=== PATIENT | female | born 1975 | race Hispanic/Latino ===

== ENCOUNTER 2017-07-03 21:08 | Emergency (ER) | payer BC ==
[2017-07-03] MEDS ORDERED: Meclizine HCl 25 MG TAB ONE (21:31)
[2017-07-03 21:53] LABS: #Eosinphils 0.1 thou/uL (0.0-0.7); #Lymphocytes 2.1 thou/uL (1.20-3.40); #Monocytes 0.3 thou/uL (0.11-0.59); #Neutrophils 1.7 thou/uL (1.40-6.50); %Basophils 0.9 % (0.0-1.0); %Eosinophils 3.3 % (0.0-10.0); %Lymphocytes 49.5 % (21.0-51.0); %Monocytes 6.4 % (0.0-10.0); Hematocrit 36.9 % (36.0-47.0); Mean Platelet Volume 7.5 fL (7.4-10.4); Red Blood Cell (RBC) Count 4.14 mill/uL (4.20-5.40); White Blood Cell (WBC) Count 4.2 thou/uL (4.8-10.8)
[2017-07-03] MEDS ORDERED: Ketorolac Tromethamine 30 MG/ML VIAL ONE (22:03)
[2017-07-03 22:12] LABS: ALT (SGPT) 11 U/L (8-55); AST (SGOT) 16 U/L (5-34); Alkaline Phosphatase 83 U/L (40-150); Anion Gap 11 mmol/L (10-20); BUN (Urea Nitrogen) 10 mg/dL (7.0-18.7); Bilirubin, Total 0.4 mg/dL (0.2-1.2); CK (CPK) 59 U/L (29-168); Calc. Creatinine Clearance 0 mL/min (70-130); Calcium 8.9 mg/dL (7.8-10.44); Carbon Dioxide 26 mmol/L (22-29); Chloride 106 mmol/L (98-107); Estimated GFR-MDRD Greater than 90; Globulin 2.7 g/dL (2.4-3.5); Protein, Total 6.9 g/dL (6.0-8.3)
[2017-07-03 22:17] LABS: Troponin I Less than 0.010 ng/mL (< 0.028)
[2017-07-03] MEDS ORDERED: Metoclopramide HCl 10 MG/2 ML VIAL ONE (23:28)
[2017-07-03 23:42] LABS: Bilirubin Negative (Negative); Blood, Urine Negative (Negative); Glucose, Urine (Dipstick) Negative (Negative); Ketone, Urine Negative (Negative); Nitrite Negative (Negative); Protein, Urine (Dipstick) Negative (Neg-Trace); Urobilinogen 0.2 mg/dL (0.2-1.0)
--- NOTE | 2017-07-04 07:04 | CT ---
CT BRAIN HISTORY: Vertigo, dizziness. Noncontrast-enhanced CT images of the brain obtained from the base of the skull to the vertex. Brai n and bone windows obtained. FINDINGS: Noncontrast-enhanced CT images of the brain are unremarkable. No evidence of intracranial masses, h emorrhages, strokes, or contusions seen. IMPRESSION: Normal CT brain. POS: [facility]
== END 2017-07-04 00:50 | disposition home or self-care (01) ==
LOC: ERS 21:08
DX: R42 Dizziness and giddiness (principal)
CPT/HCPCS: 36416; 70450; 80053; 81003; 81025; 82553; 84484; 85025; 93005; 96361; 96365; 96375; J1885; J2765

== ENCOUNTER 2018-10-07 17:36 | Emergency (ER) | payer BC ==
[~2018-10-07 17:36] MED LIST: ISOVUE-370 76%-LOCM 1 ML ONE
[2018-10-07 18:21] LABS: #Eosinphils 0.1 thou/uL (0.0-0.7); #Lymphocytes 1.6 thou/uL (1.20-3.40); #Monocytes 0.3 thou/uL (0.11-0.59); #Neutrophils 2.1 thou/uL (1.40-6.50); %Eosinophils 1.7 % (0.0-10.0); %Lymphocytes 38.8 % (21.0-51.0); %Monocytes 6.2 % (0.0-10.0); %Neutrophils 52.4 % (42.0-75.0); Hemoglobin 10.7 g/dL (12.0-16.0); Mean Corpuscular Hemoglobin 25.9 pg (27.0-31.0); Mean Platelet Volume 7.8 fL (7.4-10.4); Platelet Count 228 thou/uL (130-400); RBC Distribution Width 15.5 % (11.5-14.5); Red Blood Cell (RBC) Count 4.11 mill/uL (4.20-5.40)
[2018-10-07 18:46] LABS: ALT (SGPT) 8 U/L (8-55); AST (SGOT) 15 U/L (5-34); Albumin 4.6 g/dL (3.5-5.0); Alkaline Phosphatase 78 U/L (40-150); Anion Gap 11 mmol/L (10-20); BUN (Urea Nitrogen) 10 mg/dL (7.0-18.7); Bilirubin, Total 0.5 mg/dL (0.2-1.2); CK (CPK) 48 U/L (29-168); Calc. Creatinine Clearance 0 mL/min (70-130); Calcium 9.5 mg/dL (7.8-10.44); Carbon Dioxide 23 mmol/L (22-29); Chloride 106 mmol/L (98-107); Estimated GFR-MDRD Greater than 90; Globulin 2.6 g/dL (2.4-3.5); Glucose 86 mg/dL (70-105); Lipase 28 U/L (8-78); Potassium 3.4 mmol/L (3.5-5.1); Protein, Total 7.2 g/dL (6.0-8.3); Sodium 137 mmol/L (136-145)
--- NOTE | 2018-10-07 20:12 | RAD ---
FRONTAL VIEW CHEST: INDICATIONS: Chest pain with dizziness. FINDINGS: The lungs are clear. No effusion or pneumothorax. The cardiac silhouette and osseous structures are unremarkable. Metallic clips are seen at the right upper abdomen. IMPRESSION: No focal consolidation. POS: [facility]
[2018-10-07] MEDS ORDERED: Lorazepam 2 MG/ML VIAL ONE (20:20)
--- NOTE | 2018-10-07 21:07 | CT ---
CTA NECK WITH 3D VOLUME RENDERING WITH CONTRAST: INDICATIONS: History of left lower extremity paresthesias. Chest pain. Left facial paresthesias. The patient re ports recent neck manipulation. FINDINGS: The imaged aortic arch is patent. The origins of the great vessels are obscured by prominent streak artifact from adjacent venous contrast bolus, which does limit reliable visualization of this region. Otherwise, the major arterial system of the neck, including the bilateral common carotid and accounting intern al carotid arteries, as well as the imaged vertebral arteries, is patent, without evidence of a flow- limiting dissection, high-grade stenosis, or occlusion. IMPRESSION: No significant arterial pathology of the neck identified, within limitations. POS: [facility]
== END 2018-10-07 21:44 | disposition home or self-care (01) ==
LOC: ERS 17:36
DX: R07.9 Chest pain, unspecified (principal); R20.0 Anesthesia of skin; R42 Dizziness and giddiness
CPT/HCPCS: 36415; 70498; 71045; 80053; 82550; 83690; 84484; 85025; 93005; 96374; J2060; Q9966

== ENCOUNTER 2018-10-12 00:38 | Emergency (ER) | payer BC | END 2018-10-12 03:30 | disposition home or self-care (01) | LOC: ERS 00:38 | DX: F41.9 Anxiety disorder, unspecified (principal); R07.89 Other chest pain; Z79.899 Other long term (current) drug therapy | CPT/HCPCS: 93005 ==

== ENCOUNTER 2018-11-22 09:35 | Outpatient (CLI) | payer BC ==
--- NOTE | 2018-12-02 13:18 | MMO ---
Bilateral MAMMO Bilat Screen [facility]. CLINICAL HISTORY: Patient is 43 years old and is seen for screening. The patient has no family history of breast cancer. The patient has no personal history of cancer. The patient has a history of right Cyst Aspiration in 2018 and right Cyst Aspiration in 2017. VIEWS: The views performed were: bilateral craniocaudal with tomosynthesis and bilateral mediolateral oblique with tomosynthesis. FILMS COMPARED: The present examination has been compared to a prior imaging study performed at [facility] on 02/04/2016. MAMMOGRAM FINDINGS: The breasts are extremely dense, which may lower the sensitivity of mammography. Benign calcifications are noted bilaterally. There are no suspicious masses, calcifications or areas of architectural distortion. IMPRESSION: FINDINGS IN BOTH BREASTS ARE BENIGN. A ROUTINE FOLLOW-UP MAMMOGRAM IN 1 YEAR IS RECOMMENDED. THE RESULTS OF THIS EXAM WERE SENT TO THE PATIENT. ACR BI-RADS Category 2 - Benign finding MAMMOGRAPHY NOTE: 1. A negative mammogram report should not delay a biopsy if a dominant of clinically suspicious mass is present. 2. Approximately 10% to 15% of breast cancers are not detected by mammography. 3. Adenosis and dense breasts may obscure an underlying neoplasm.
== END 2018-11-22 09:36 | disposition home or self-care (01) ==
LOC: BICMAMMO 09:35
PROVIDERS: ATTEND Family Medicine
DX: Z12.31 Encounter for screening mammogram for malignant neoplasm of breast (principal); Z98.890 Other specified postprocedural states
CPT/HCPCS: 77063; 77067

== ENCOUNTER 2019-01-10 15:15 | Outpatient (CLI) | payer BC ==
--- NOTE | 2019-01-10 16:53 | MRI ---
Pre and postcontrast enhanced MRI images brain and cranial nerves 01/10/2019. HISTORY: Left-sided facial tingling. MRI images brain demonstrate the brain to be unremarkable. No evidence of intracranial masses, hemorr hages, strokes or contusion seen. Ventricles are of normal size. No evidence of areas of diffusion restriction seen. No abnormal areas of intracranial enhancement seen to suggest obvious intracranial mass lesions or ab normalities. The course of the cranial nerves demonstrate no abnormal masses or lesions. The left trigeminal nerve and facial nerves are unremarkable. IMPRESSION: Unremarkable pre and postcontrast enhanced MRI images of brain. Transcribed Date/Time: 01/10/2019 6:30 PM
== END 2019-01-10 15:16 | disposition home or self-care (01) ==
LOC: BICMRI 15:15
PROVIDERS: ATTEND Psychiatry & Neurology Neurology
DX: R20.2 Paresthesia of skin (principal)
CPT/HCPCS: 70553

== ENCOUNTER 2019-05-14 18:55 | Emergency (ER) | payer BC ==
[2019-05-14 20:47] LABS: #Eosinphils 0.1 thou/uL (0.0-0.7); #Lymphocytes 1.4 thou/uL (1.20-3.40); #Monocytes 0.4 thou/uL (0.11-0.59); %Basophils 0.8 % (0.0-1.0); %Eosinophils 1.9 % (0.0-10.0); %Lymphocytes 23.9 % (21.0-51.0); %Neutrophils 67.4 % (42.0-75.0); Hemoglobin 12.5 g/dL (12.0-16.0); Mean Corpuscular HGB CONC 34.3 g/dL (32.0-36.0); Mean Corpuscular Hemoglobin 31.8 pg (27.0-31.0); Mean Corpuscular Volume 92.7 fL (78.0-98.0); Mean Platelet Volume 7.4 fL (7.4-10.4); Platelet Count 214 thou/uL (130-400); RBC Distribution Width 11.1 % (11.5-14.5); Red Blood Cell (RBC) Count 3.94 mill/uL (4.20-5.40); White Blood Cell (WBC) Count 5.9 thou/uL (4.8-10.8)
[2019-05-14 21:04] LABS: Bilirubin Negative (Negative); Blood, Urine 2+ (Negative); Clarity Clear (Clear); Glucose, Urine (Dipstick) Normal (Negative); Leukocyte 25 Leu/uL (Negative); Nitrite Negative (Negative); Protein, Urine (Dipstick) Negative (Neg-Trace); Squamous Epithelial 0-3 HPF (0-3); Urobilinogen Normal mg/dL (Less than 2); WBC/HPF 0-3 HPF (0-3)
[2019-05-14 21:07] LABS: ALT (SGPT) 16 U/L (8-55); AST (SGOT) 27 U/L (5-34); Albumin 4.6 g/dL (3.5-5.0); Alkaline Phosphatase 77 U/L (40-150); Anion Gap 11 mmol/L (10-20); BUN (Urea Nitrogen) 13 mg/dL (7.0-18.7); Bilirubin, Total 0.4 mg/dL (0.2-1.2); Calc. Creatinine Clearance 0 mL/min (70-130); Calcium 9.2 mg/dL (7.8-10.44); Carbon Dioxide 24 mmol/L (22-29); Chloride 105 mmol/L (98-107); Estimated GFR-MDRD Greater than 90; Globulin 2.4 g/dL (2.4-3.5); Glucose 90 mg/dL (70-105); Potassium 3.4 mmol/L (3.5-5.1); Sodium 137 mmol/L (136-145)
[2019-05-14 21:12] LABS: BHCG - Serum Negative (NEGATIVE); Pregs Control Background? CLEAR/WHITE (CLR/WHITE); Pregs Control Bar Appear? YES (CONTROL BAR)
[2019-05-14 21:13] LABS: Bacteria/HPF None Seen HPF (None Seen)
--- NOTE | 2019-05-14 21:32 | ULT ---
Pelvic sonogram transabdominal and transvaginal imaging with duplex evaluation HISTORY: Pelvic pain and bleeding. FINDINGS: Urinary bladder is decompressed. Uterus has a heterogeneous echotexture and measures up to 9.6 cm. Within the lower uterine segment is a heterogeneous 4.2 cm hypoechoic lesion. Endometrium is 0.4 cm. Physiologic amount of free fluid within the cul-de-sac. Right ovary measures up to 6.0 cm with a large dominant cyst measuring up to 5.7 cm. Left ovary is 3. 1 cm. Good color and spectral Doppler flow within each ovary. IMPRESSION: Large right ovarian cyst. Moderate fibroid involvement of the uterus.
== END 2019-05-14 22:30 | disposition home or self-care (01) ==
LOC: ERS 18:55
DX: N83.202 Unspecified ovarian cyst, left side (principal); D25.9 Leiomyoma of uterus, unspecified; F41.9 Anxiety disorder, unspecified
CPT/HCPCS: 36415; 76856; 80053; 81003; 81015; 84703; 85025

== ENCOUNTER 2019-07-03 21:07 | Observation (INO) | payer BC ==
[2019-07-03 21:49] LABS: #Basophils 0.1 thou/uL (0.0-0.2); #Eosinphils 0.1 thou/uL (0.0-0.7); #Lymphocytes 2.5 thou/uL (1.20-3.40); #Monocytes 0.4 thou/uL (0.11-0.59); #Neutrophils 2.9 thou/uL (1.40-6.50); %Eosinophils 1.6 % (0.0-10.0); %Lymphocytes 41.7 % (21.0-51.0); %Monocytes 7.3 % (0.0-10.0); %Neutrophils 48.5 % (42.0-75.0); Hemoglobin 7.5 g/dL (12.0-16.0); Mean Corpuscular HGB CONC 33.5 g/dL (32.0-36.0); Mean Corpuscular Hemoglobin 29.9 pg (27.0-31.0); Mean Corpuscular Volume 89.3 fL (78.0-98.0); Mean Platelet Volume 7.6 fL (7.4-10.4); Platelet Count 230 thou/uL (130-400); RBC Distribution Width 12.3 % (11.5-14.5); Red Blood Cell (RBC) Count 2.51 mill/uL (4.20-5.40); White Blood Cell (WBC) Count 6.1 thou/uL (4.8-10.8)
[2019-07-03 21:53] LABS: BHCG - Serum Negative (NEGATIVE); Pregs Control Background? CLEAR/WHITE (CLR/WHITE); Pregs Control Bar Appear? YES (CONTROL BAR)
[2019-07-03 22:03] LABS: Bilirubin Negative (Negative); Blood, Urine 2+ (Negative); Clarity Clear (Clear); Glucose, Urine (Dipstick) Normal (Negative); Leukocyte 25 Leu/uL (Negative); Nitrite Negative (Negative); Pregnancy Test - Urine (BHCG) Negative (Negative); Pregu Control Background? CLEAR/WHITE (CLR/WHITE); Pregu Control Bar Appear? YES (CONTROL BAR); Protein, Urine (Dipstick) 20 mg/dL (Neg-Trace); RBC/HPF Greater than 50 HPF (0-3); Specific Gravity 1.011 (1.002-1.036); Squamous Epithelial 0-3 HPF (0-3); Urobilinogen Normal mg/dL (Less than 2); WBC/HPF 21-50 HPF (0-3)
[2019-07-03 22:04] LABS: Bacteria/HPF 1+ HPF (None Seen)
[2019-07-03 22:09] LABS: ALT (SGPT) 7 U/L (8-55); AST (SGOT) 14 U/L (5-34); Albumin 3.9 g/dL (3.5-5.0); Alkaline Phosphatase 71 U/L (40-110); Anion Gap 9 mmol/L (10-20); BUN (Urea Nitrogen) 16 mg/dL (7.0-18.7); Bilirubin, Total 0.2 mg/dL (0.2-1.2); Calc. Creatinine Clearance 0 mL/min (70-130); Calcium 8.6 mg/dL (7.8-10.44); Carbon Dioxide 25 mmol/L (22-29); Chloride 108 mmol/L (98-107); Estimated GFR-MDRD 87; Glucose 130 mg/dL (70-105); Potassium 3.3 mmol/L (3.5-5.1); Protein, Total 5.9 g/dL (6.0-8.3); Sodium 139 mmol/L (136-145)
[2019-07-03] MEDS ORDERED: Ketorolac Tromethamine 30 MG/ML VIAL ONE (22:30)
[2019-07-03] MEDS ORDERED: Lorazepam 2 MG/ML VIAL ONE (22:34)
[2019-07-03] MEDS ORDERED: Tranexamic Acid 1,000 MG/10 ML VIAL ONE (22:38)
--- NOTE | 2019-07-03 23:42 | ULT ---
PELVIC ULTRASOUND: 07/03/19 HISTORY: Vaginal bleeding and anemia. COMPARISON: 05/14/19. FINDINGS: Multiple transabdominal and endovaginal sonographic images of the pelvis are obtained. Doppler evalua tion with spectral analysis and color flow evaluation of each ovary is performed. As noted on the prior exam, the uterus again demonstrates heterogeneity with a heterogeneous mass-lik e area seen within the lower uterine segment which measures 4.1 cm x 3.5 cm x 4.1 cm. This is likely related to a large uterine fibroid in the lower uterine segment. The endometrial stripe measures 0.9 cm in thickness. No fluid or fluid collection is seen in the endo metrial canal. The endometrial thickness would be within normal limits in a premenopausal female charley ent. The right ovary again demonstrates a dominant anechoic cystic structure measuring 5.6 cm in maximal d imensions most suggestive of a large right ovarian cyst. The left ovary demonstrates a normal sonographic appearance. Arterial flow is documented in each ovary. No free fluid is seen in the cul-de-sac. IMPRESSION: 1. Stable size of large right ovarian cyst. Arterial flow is present in the right ovary. 2. Moderate sized uterine fibroid in the lower uterine segment. 3. Endometrial thickness is 0.9 cm. POS: OFF
[2019-07-04] MEDS ORDERED: Sodium Chloride 0.45% 1,000 ML IV SCH (03:15)
--- NOTE | 2019-07-04 07:18 | HP ---
TIME OF SERVICE: 0640 hours. HISTORY OF PRESENT ILLNESS: Ms. Pimentel was admitted from the emergency room in observation status for symptomatic anemia. She is a 44-year-old, G4, P4 under the care of Dr. Barber. Scheduled for a total laparoscopic hysterectomy for fibroids on July 22. She presented with symptomatic anemia and hematocrit of 22%. 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 x4, status post BTL. PAST MEDICAL HISTORY: Anemia. PAST SURGICAL HISTORY: BTL and cholecystectomy. ALLERGIES: PHENERGAN. MEDICATIONS: P.o. iron. SOCIAL HISTORY: Denies tobacco, alcohol, or IV drug use. FAMILY HISTORY: Noncontributory. REVIEW OF SYSTEMS: Noncontributory. PHYSICAL EXAMINATION: GENERAL: female, in no acute distress. VITAL SIGNS: The patient presented with a near syncopal episode with a pulse of 110. Currently, blood pressure is 97/49, pulse 77, respirations 18, and temperature 98.3. HEENT: Within normal limits. LUNGS: Clear to auscultation bilaterally. HEART: Regular rate and rhythm. ABDOMEN: Soft, nontender. No rebound or guarding. : Vulva, lesions. Vagina without discharge except for moderate blood. Cervix parous. Uterus anteverted, approximately 8- to 12-week size. Adnexa, no masses bilaterally. EXTREMITIES: No clubbing, cyanosis, or edema. IMAGING STUDIES: Ultrasound reveals a uterus with a 4-cm lower uterine segment fibroid and endometrial thickness of 0.9. LABORATORY DATA: Admission hematocrit was 22.5% with a hemoglobin of 7.5, normal platelet count, normal basic metabolic profile, unremarkable urinalysis. IMPRESSION: Symptomatic leiomyoma uteri with menorrhagia and anemia. Bleeding has responded to IV TXA, p.o. TXA, and Provera. The patient has received 2 units of PRBCs. We will administer 500 mg of iron sucrose. Repeat hematocrit at 8:30. Anticipate discharge home later in the morning. The patient is to keep scheduled followup with Dr. Barber. Discharge medications will include Lysteda 650, the patient to take two p.o. t.i.d. with heavy bleeding. Also, we will discharge the patient home on Provera 10 mg to take one p.o. b.i.d. until scheduled surgery on 07/22. The patient to follow up with Dr. Barber. Job ID: [id number]
[2019-07-04] MEDS ORDERED: Iron Sucrose Complex 500 MG in Sodium Chloride 0.9% 250 ML 250 ML IVPB SCH (07:30)
[2019-07-04 07:42] VITALS: BP 88/52; TEMP 98.6
[2019-07-04 08:59] LABS: #Eosinphils 0.1 thou/uL (0.0-0.7); #Lymphocytes 1.4 thou/uL (1.20-3.40); #Monocytes 0.3 thou/uL (0.11-0.59); #Neutrophils 2.7 thou/uL (1.40-6.50); %Basophils 0.4 % (0.0-1.0); %Eosinophils 1.2 % (0.0-10.0); %Lymphocytes 30.5 % (21.0-51.0); %Neutrophils 61.9 % (42.0-75.0); Hemoglobin 9.7 g/dL (12.0-16.0); Mean Corpuscular HGB CONC 33.7 g/dL (32.0-36.0); Mean Corpuscular Hemoglobin 30.9 pg (27.0-31.0); Mean Corpuscular Volume 91.9 fL (78.0-98.0); Mean Platelet Volume 7.5 fL (7.4-10.4); Platelet Count 170 thou/uL (130-400); RBC Distribution Width 12.5 % (11.5-14.5); Red Blood Cell (RBC) Count 3.14 mill/uL (4.20-5.40); White Blood Cell (WBC) Count 4.4 thou/uL (4.8-10.8)
[2019-07-04] MEDS ORDERED: medroxyPROGESTERone Acetate 5 MG TAB PO SCH (09:00)
[2019-07-04] MEDS ORDERED: Iron, Sodium Ferric Gluconate 250 MG in Sodium Chloride 0.9% 250 ML 250 ML IVPB SCH (09:00)
[2019-07-04] MEDS ORDERED: Tranexamic Acid 650 MG TAB PO SCH (09:00)
--- NOTE | 2019-07-05 01:54 | DIS ---
DATE OF ADMISSION: 07/04/2019 DATE OF DISCHARGE: 07/04/2019 DIAGNOSES: 1. Acute blood loss anemia. 2. Abnormal uterine bleeding secondary to fibroids. PROCEDURES: 1. Transfusion of 2 units of packed red blood cells. 2. IV iron infusion. HOSPITAL COURSE: The patient presented to the emergency department for symptoms of symptomatic anemia. She is G4, P4, under the care of Dr. Barber and is scheduled for a total laparoscopic hysterectomy on July 22. She was admitted for blood transfusion and IV iron. She received IV tranexamic acid and Provera to which her bleeding responded. Following her transfusions, the patient's hemoglobin and symptoms improved and she was meeting all milestones for discharge. DIET: Regular. ACTIVITIES: As tolerated. DISCHARGE MEDICATIONS: The patient was given a prescription for Lysteda 650 mg with instructions to take 2 p.o. t.i.d. with heavy bleeding. She was also given Provera 10 mg to take one p.o. b.i.d. until her scheduled surgery. FOLLOWUP: Follow up with Dr. Barber as scheduled. Job ID: [id number] [facility]
== END 2019-07-04 10:45 | disposition home or self-care (01) ==
LOC: ERS 21:07 → 3SE 07-04 02:27
PROVIDERS: ADMIT Obstetrics & Gynecology; ATTEND Obstetrics & Gynecology
PROC: 30233N1 Transfusion of Nonautologous Red Blood Cells into Peripheral Vein, Percutaneous Approach (ICD-10-PCS; principal; 2019-07-04)
DX: D62 Acute posthemorrhagic anemia (principal); D25.9 Leiomyoma of uterus, unspecified; N83.201 Unspecified ovarian cyst, right side; Z30.2 Encounter for sterilization; Z88.8 Allergy status to other drugs, medicaments and biological substances
CPT/HCPCS: 36415; 36430; 76856; 80053; 81003; 81015; 81025; 84703; 85025; 86850; 86900; 86901; 93005; 96361; 96365; 96366; 96367; 96375; G0378; J1756; J1885; J2060; J7050; P9016

== ENCOUNTER 2019-07-04 12:05 | Emergency (ER) | payer BC | END 2019-07-04 12:30 | disposition home or self-care (01) | LOC: ERS 12:05 | DX: D64.9 Anemia, unspecified (principal); K21.9 Gastro-esophageal reflux disease without esophagitis; F41.9 Anxiety disorder, unspecified; Z79.899 Other long term (current) drug therapy | CPT/HCPCS: 99283 ==

== ENCOUNTER 2019-07-10 06:29 | Outpatient (CLI) | payer BC | END 2019-07-10 06:30 | disposition home or self-care (01) | LOC: LABBT 06:29 | PROVIDERS: ATTEND Obstetrics & Gynecology | DX: Z01.812 Encounter for preprocedural laboratory examination (principal); D21.9 Benign neoplasm of connective and other soft tissue, unspecified; N92.6 Irregular menstruation, unspecified | CPT/HCPCS: 84703; 85027; 86850; 86900; 86901 ==

== ENCOUNTER 2019-07-15 11:55 | Day surgery (SDC) | payer BC ==
[2019-07-10 10:02] VITALS: BMI 24.0
[2019-07-10 10:58] LABS: Mean Corpuscular HGB CONC 32.2 g/dL (32.0-36.0); Mean Corpuscular Volume 96.3 fL (78.0-98.0); Mean Platelet Volume 7.1 fL (7.4-10.4); Platelet Count 308 thou/uL (130-400); RBC Distribution Width 14.8 % (11.5-14.5); Red Blood Cell (RBC) Count 3.22 mill/uL (4.20-5.40); White Blood Cell (WBC) Count 3.3 thou/uL (4.8-10.8)
[2019-07-10 11:11] LABS: BHCG - Serum Negative (NEGATIVE); Pregs Control Background? CLEAR/WHITE (CLR/WHITE); Pregs Control Bar Appear? YES (CONTROL BAR)
[2019-07-15] MEDS ORDERED: Famotidine/PF 20 mg/2ml Vial ONE (12:33)
[2019-07-15] MEDS ORDERED: Gabapentin 300 MG CAP ONE (12:33)
[2019-07-15 12:34] LABS: Mean Corpuscular HGB CONC 33.5 g/dL (32.0-36.0); Mean Corpuscular Hemoglobin 31.1 pg (27.0-31.0); Mean Corpuscular Volume 92.8 fL (78.0-98.0); Mean Platelet Volume 6.7 fL (7.4-10.4); Platelet Count 343 thou/uL (130-400); RBC Distribution Width 13.6 % (11.5-14.5); Red Blood Cell (RBC) Count 3.21 mill/uL (4.20-5.40)
[2019-07-15] MEDS ORDERED: CeleCOXIB 100 MG CAP ONE (12:34)
[2019-07-15 12:52] LABS: Anion Gap 12 mmol/L (10-20); BUN (Urea Nitrogen) 9 mg/dL (7.0-18.7); Calc. Creatinine Clearance 92 mL/min (70-130); Carbon Dioxide 21 mmol/L (22-29); Chloride 109 mmol/L (98-107); Estimated GFR-MDRD Greater than 90; Glucose 84 mg/dL (70-105); Potassium 3.6 mmol/L (3.5-5.1); Sodium 138 mmol/L (136-145)
[2019-07-15] MEDS ORDERED: Dexamethasone 20 MG/5 ML VIAL ONE (12:53)
[2019-07-15] MEDS ORDERED: PHENYLEPHRINE-NS 100 MCG/ML 10 ML SYRINGE ONE (12:53)
[2019-07-15] MEDS ORDERED: Lidocaine 1% PF 5 ML VIAL ONE (12:53)
[2019-07-15] MEDS ORDERED: Glycopyrrolate 0.2 MG/ML 5 ML SYRINGE ONE (12:53)
[2019-07-15] MEDS ORDERED: Ondansetron PF 4 MG/2 ML Vial ONE (12:53)
[2019-07-15] MEDS ORDERED: Metoclopramide HCl 10 MG/2 ML VIAL ONE (12:53)
[2019-07-15] MEDS ORDERED: PROPOFOL 200 MG/20 ML VIAL ONE (12:53)
[2019-07-15] MEDS ORDERED: Rocuronium Bromide 50 MG/5 ML VIAL ONE (12:53)
[2019-07-15] MEDS ORDERED: Midazolam HCl 2 mg/2 ml Vial ONE ×2 (13:37→13:52)
[2019-07-15] MEDS ORDERED: Bupivacaine HCl 0.5%/Epinephrine 1:200,000/PF 30 ml Vial ONE (13:46)
[2019-07-15] MEDS ORDERED: Fentanyl 100 MCG/2 ML VIAL ONE (13:52)
[2019-07-15] MEDS ORDERED: Bisacodyl 10 MG SUPP PR PRN (16:07)
[2019-07-15] MEDS ORDERED: Morphine 4 MG/ML VIAL SLOW IVP PRN (16:07)
[2019-07-15] MEDS ORDERED: Simethicone Chewable 80 MG TAB PO PRN (16:07)
[2019-07-15] MEDS ORDERED: Ondansetron PF 4 MG/2 ML Vial IVP PRN (16:07)
[2019-07-15] MEDS ORDERED: HYDROcodone/Acetaminophen 5/325 mg Tablet PO PRN ×2 (16:07)
[2019-07-15] MEDS ORDERED: diphenhydrAMINE 25 MG CAP PO PRN (16:07)
[2019-07-15] MEDS ORDERED: Zolpidem Tartrate 5 MG TAB PO PRN (16:07)
[2019-07-15] MEDS ORDERED: Lorazepam 0.5 MG TAB PO PRN (16:10)
[2019-07-15] MEDS ORDERED: Meperidine HCl/PF 25 MG/ML VIAL ONE (16:41)
[2019-07-15] MEDS: Ketorolac Tromethamine 30 MG/ML VIAL IVP SCH (18:44)
[2019-07-15] MEDS: Sodium Chloride 0.9% 1,000 ML IV SCH (20:53)
[2019-07-16] MEDS: Ketorolac Tromethamine 30 MG/ML VIAL IVP SCH (00:24)
[2019-07-16] MEDS: Sodium Chloride 0.9% 1,000 ML IV SCH ×2 (05:02→09:35)
[2019-07-16 05:47] LABS: Hemoglobin 9.1 g/dL (12.0-16.0); Mean Corpuscular HGB CONC 33.5 g/dL (32.0-36.0); Mean Corpuscular Hemoglobin 31.3 pg (27.0-31.0); Mean Corpuscular Volume 93.3 fL (78.0-98.0); Platelet Count 291 thou/uL (130-400); RBC Distribution Width 13.6 % (11.5-14.5); Red Blood Cell (RBC) Count 2.91 mill/uL (4.20-5.40); White Blood Cell (WBC) Count 6.4 thou/uL (4.8-10.8)
[2019-07-16] MEDS ORDERED: Ibuprofen 800 MG TAB PO SCH (06:00)
[2019-07-16 06:07] LABS: Anion Gap 13 mmol/L (10-20); BUN (Urea Nitrogen) 5 mg/dL (7.0-18.7); Calc. Creatinine Clearance 99 mL/min (70-130); Calcium 8.6 mg/dL (7.8-10.44); Carbon Dioxide 20 mmol/L (22-29); Chloride 109 mmol/L (98-107); Estimated GFR-MDRD Greater than 90; Glucose 105 mg/dL (70-105); Potassium 4.1 mmol/L (3.5-5.1); Sodium 138 mmol/L (136-145)
--- NOTE | 2019-07-16 07:48 | OP ---
DATE OF PROCEDURE: 07/15/2019 PREOPERATIVE DIAGNOSES: 1. Prolapsed uterine fibroid. 2. Abnormal uterine bleeding. 3. Pelvic pain. 4. Right ovarian simple cyst. POSTOPERATIVE DIAGNOSES: 1. Prolapsed uterine fibroid. 2. Abnormal uterine bleeding. 3. Pelvic pain. 4. Simple right paratubal cyst. PROCEDURES PERFORMED: 1. Vaginal of prolapsing uterine fibroid. 2. Robotic-assisted total laparoscopic hysterectomy with bilateral salpingectomy. 3. Removal of right paratubal cyst. SURGEON: Elizabeth Barber DO LEI MAKER: SAURABH Navarro ESTIMATED BLOOD LOSS: 50 mL. COMPLICATIONS: None. ANESTHESIA: General. FINDINGS: Normal-appearing external genitalia. Normal-appearing vaginal epithelium. A 5 cm prolapsing fibroid to the cervical canal that was benign in appearance and otherwise a 6 cm uterus. Normal-appearing ovaries. A 5 cm simple appearing paratubal cyst on the right fallopian tube and normal-appearing left fallopian tube. INDICATIONS FOR THE PROCEDURE: Ms. Rossy Pimentel is a 44-year-old female, who presented to clinic with abnormal uterine bleeding and pelvic pain, specifically increased bleeding after intercourse. The patient was examined and found to have a prolapsing uterine fibroid through the cervical canal. The patient was counseled and myomectomy of the uterine fibroid and hysterectomy was recommended. The patient was amenable to this procedure. She also had a simple appearing right adnexal cyst, which was noted on ultrasound and planned for a possible cystectomy. DESCRIPTION OF PROCEDURE: The patient was brought to the operating room. She was placed under general anesthesia and placed in dorsal lithotomy position using Jordan stirrups. She was prepped and draped in a sterile fashion. She was given Ancef for surgical prophylaxis. An official time-out was performed. A single-sided speculum was placed into the vagina. The prolapsing uterine fibroid was noted. The fibroid was grasped with a single-tooth tenaculum. An Endoloop stitch was then placed around the stalk. However, it was very thick, was placed around the most proximal aspect of the stalk that could be obtained and this was done with two Endoloop stitches to appropriately secure the vascularity. The fibroid then was removed using cautery. At this point, the fibroid was removed from the vagina. The uterus was then sounded to be approximately 6 cm. A ANABELA manipulator was then inserted using a 6 cm length and 4 cm cup. The cervix was dilated due to the prolapsing fibroid; however, the cup did appropriately secure to the ectocervix. A Bueno catheter was then placed. Gloves were exchanged. Attention was turned to the abdominal portion. An umbilical incision was made using the scalpel. The Veress needle was inserted into the peritoneal cavity noting a normal pressure. The 12 mm trocar was then placed at the site. The abdomen was then evaluated. The patient was placed in Trendelenburg position. Additional ports were placed using a robotic port on the right and left aspect of the abdomen and an 11 mm trocar on the right aspect as well for an city carrier assistant port. All ports were placed under direct visualization and using local anesthesia. The hysterectomy was then first started by performing a left salpingectomy from the distal to proximal end completely removing the fallopian tube. The left round ligament was then coagulated multiple times and transected. The left utero-ovarian ligament was also coagulated multiple times and transected. This allowed entrance into the broad ligament. The broad ligament was further undermined and transected anteriorly and posteriorly. The left uterine vessels were further skeletonized. The bladder flap was then created anteriorly along the left aspect. The uterine vessels were additionally skeletonized and cauterized; however, not yet transected. Attention was then turned over to the right aspect, where the right paratubal cyst was noted at the distal portion of the fallopian tube. The fallopian tube was then removed using coagulation and transection and then the fallopian tube was then placed in the cul-de-sac for later removal. The paratubal cyst was still intact. The right round ligament was then coagulated multiple times and transected. The right utero- ovarian ligament was also coagulated multiple times and transected. The broad ligament was then entered. Anterior leaf of the broad ligament was then undermined and transected allowing inferior reflection of the bladder and the posterior aspect of the broad ligament was also undermined and transected. The right uterine vessels were skeletonized. The right uterine vessels were then coagulated multiple times and transected. The left uterine vessels were again coagulated multiple times and transected. The colpotomy was performed in circumferential fashion completely removing the cervical tissue from the vaginal tissue. The uterus, cervix, manipulator and the left fallopian tube with paratubal cyst were then delivered through the vagina. The specimen was evaluated noting complete removal of the cervix. The cervix was dilated. The pelvis was irrigated and cleared of all clot and debris. The vaginal cuff was closed in a running fashion using 1- Stratafix suture. Again, the pelvis was irrigated and cleared of all clot and debris. All sites were hemostatic. The instruments were then removed. The robot was undocked. The abdomen was deflated and the trocars removed and the patient was placed back in supine position. The fascia of the umbilical site was then closed using 0 Vicryl in a [id number] suture. The skin incisions were closed using 4-0 Monocryl and dermabond. The patient tolerated the procedure well. There were no complications. All counts were correct x3. Job ID: [id number] [facility]
[2019-07-16 08:02] VITALS: BP 105/61; TEMP 98.7
[2019-07-16] MEDS ORDERED: Cyanocobalamin (Vitamin B-12) 1,000 MCG TAB PO SCH (09:00)
[2019-07-16] MEDS ORDERED: Ferrous Sulfate 325 MG TAB PO SCH (09:00)
--- NOTE | 2019-07-16 09:19 | PRG ---
DATE OF SERVICE: 07/16/2019 HISTORY OF PRESENT ILLNESS: Postoperative day #1, status post vaginal myomectomy of prolapsing uterine fibroid followed by robotic-assisted total laparoscopic hysterectomy with bilateral salpingectomy and cystectomy of a right paratubal cyst. SUBJECTIVE: The patient reports good pain control. She denies any concerns this morning. She reports no vaginal bleeding. Her Bueno catheter was removed this morning and she is able to void without difficulty. She is ambulating well. The patient is also passing flatus. Denies any nausea, vomiting, fevers, or chills. OBJECTIVE: VITAL SIGNS: Blood pressure 105/61, pulse is 68, respiratory rate is 20, oxygen saturation is 100% on room air, and temperature is 98.7. GENERAL: No acute distress. CARDIOVASCULAR: Regular rate. RESPIRATORY: Unlabored breathing. ABDOMEN: Soft. Minimal distention. Incision is clean, dry, and intact. Minimal tenderness to palpation. EXTREMITIES: Negative Homans. No edema. LABORATORY DATA: Hemoglobin 9.1, hematocrit 27.2, platelet count is 291. Creatinine is 0.65. ASSESSMENT: Postoperative day #1, status post vaginal myomectomy of prolapsing uterine fibroid followed by robotic-assisted total laparoscopic hysterectomy with bilateral salpingectomy and cystectomy of a right paratubal cyst. PLAN: The patient is meeting all requirements for discharge. We will plan for discharge home this morning, and follow up in 2 weeks. Job ID: [id number] [facility]
--- NOTE | 2019-07-16 09:44 | DIS ---
DATE OF ADMISSION: 07/15/2019 DATE OF DISCHARGE: 07/16/2019 ADMISSION DIAGNOSES: Pain control, status post a vaginal myomectomy, a prolapsing fibroid followed by robotic-assisted total laparoscopic hysterectomy with bilateral salpingectomy including removal of a right paratubal cyst. DISCHARGE DIAGNOSES: Pain control, status post a vaginal myomectomy, a prolapsing fibroid followed by robotic-assisted total laparoscopic hysterectomy with bilateral salpingectomy including removal of a right paratubal cyst. ADMITTING PHYSICIAN: Elizabeth Barber DO DISCHARGE PHYSICIAN: Elizabeth Barber DO BRIEF HOSPITAL COURSE: Ms. Rossy Pimentel is a 44-year-old female postop day #1, status post a vaginal myomectomy, a prolapsing fibroid followed by robotic- assisted total laparoscopic hysterectomy with bilateral salpingectomy including removal of a right paratubal cyst. She is meeting all requirements for discharge. The patient is ambulating, voiding, passing flatus, tolerating oral intake, and her pain is controlled with oral medications. Her labs and vitals are stable. DISPOSITION: Discharged home. FOLLOWUP: Follow up in 2 weeks. ACTIVITY RESTRICTIONS: No heavy lifting, pushing or pulling, and pelvic rest x6 weeks. MEDICATIONS: 1. Canovanas 5/325 one tablet every 4 hours p.r.n. pain #30, zero refills. 2. Motrin 800 mg one tablet every 8 hours p.r.n. pain #60, zero refills. Job ID: [id number] [facility]
== END 2019-07-16 09:54 | disposition home or self-care (01) ==
LOC: SDC 11:55 → 3SE 16:06 → SDC 07-16 09:54
PROVIDERS: ATTEND Obstetrics & Gynecology
PROC: 0UT94ZZ Resection of Uterus, Percutaneous Endoscopic Approach (ICD-10-PCS; principal; 2019-07-15)
PROC: 0UT74ZZ Resection of Bilateral Fallopian Tubes, Percutaneous Endoscopic Approach (ICD-10-PCS; principal; 2019-07-15)
DX: D25.9 Leiomyoma of uterus, unspecified (principal); N83.8 Other noninflammatory disorders of ovary, fallopian tube and broad ligament; Z79.899 Other long term (current) drug therapy; Z88.8 Allergy status to other drugs, medicaments and biological substances
CPT/HCPCS: 36415; 80048; 84703; 85027; 86850; 86900; 86901; 88307; J0131; J0670; J0690; J1100; J1885; J2001; J2175; J2250; J2405; J2704; J2765; J3010; S0028

== ENCOUNTER 2019-07-17 14:13 | Emergency (ER) | payer BC ==
[2019-07-17 15:00] LABS: #Basophils 0.1 thou/uL (0.0-0.2); #Lymphocytes 1.5 thou/uL (1.20-3.40); #Monocytes 0.3 thou/uL (0.11-0.59); #Neutrophils 4.5 thou/uL (1.40-6.50); %Eosinophils 0.7 % (0.0-10.0); %Lymphocytes 23.2 % (21.0-51.0); %Monocytes 4.6 % (0.0-10.0); %Neutrophils 70.5 % (42.0-75.0); Hemoglobin 8.5 g/dL (12.0-16.0); Mean Corpuscular HGB CONC 32.8 g/dL (32.0-36.0); Mean Corpuscular Hemoglobin 30.9 pg (27.0-31.0); Mean Corpuscular Volume 94.2 fL (78.0-98.0); Mean Platelet Volume 6.7 fL (7.4-10.4); Platelet Count 279 thou/uL (130-400); RBC Distribution Width 13.9 % (11.5-14.5); Red Blood Cell (RBC) Count 2.76 mill/uL (4.20-5.40); White Blood Cell (WBC) Count 6.3 thou/uL (4.8-10.8)
[2019-07-17 15:22] LABS: ALT (SGPT) 7 U/L (8-55); AST (SGOT) 13 U/L (5-34); Alkaline Phosphatase 55 U/L (40-110); Anion Gap 12 mmol/L (10-20); BUN (Urea Nitrogen) 9 mg/dL (7.0-18.7); Bilirubin, Total 0.3 mg/dL (0.2-1.2); Calc. Creatinine Clearance 0 mL/min (70-130); Calcium 8.6 mg/dL (7.8-10.44); Carbon Dioxide 24 mmol/L (22-29); Chloride 110 mmol/L (98-107); Estimated GFR-MDRD Greater than 90; Globulin 1.8 g/dL (2.4-3.5); Glucose 93 mg/dL (70-105); Potassium 3.8 mmol/L (3.5-5.1); Protein, Total 5.8 g/dL (6.0-8.3); Sodium 142 mmol/L (136-145)
[2019-07-17] MEDS ORDERED: Iopamidol-370 76% 500 ML 1 ML ONE (16:00)
[2019-07-17] MEDS ORDERED: Ketorolac Tromethamine 30 MG/ML VIAL ONE (16:31)
[2019-07-17] MEDS ORDERED: Morphine 4 MG/ML VIAL ONE (16:31)
--- NOTE | 2019-07-17 17:10 | CT ---
EXAM: CTA of the chest HISTORY: Right upper quadrant abdominal pain and dyspnea secondary to shallow breathing from the abdo armaan pain. COMPARISON: None TECHNIQUE: Multiple contiguous axial images were obtained a CTA of the chest with contrast per pulmon lucía embolism protocol. 3-D oblique MIP reformats and direct coronal reformats were performed. FINDINGS: HEART: Normal in size without focal cardiac abnormality. PULMONARY ARTERIES: Normal in caliber without filling defects to suggest pulmonary emboli. MEDIASTINUM: No hilar or mediastinal lymphadenopathy. LUNGS: No focal infiltrates or masses. Mild atelectasis in the lung bases. PLEURAL SPACE: No pleural effusion or pneumothorax. CHEST WALL SOFT TISSUES: Unremarkable VISUALIZED OSSEOUS STRUCTURES: Unremarkable VISUALIZED SUBDIAPHRAGMATIC STRUCTURES: Free air in the abdomen is from recent surgery. IMPRESSION: No evidence of pulmonary thromboembolism
[2019-07-17] MEDS ORDERED: Lorazepam 2 MG/ML VIAL ONE (18:09)
== END 2019-07-17 19:00 | disposition home or self-care (01) ==
LOC: ERS 14:13
DX: G89.18 Other acute postprocedural pain (principal); R10.11 Right upper quadrant pain; D64.9 Anemia, unspecified; K21.9 Gastro-esophageal reflux disease without esophagitis; Z79.899 Other long term (current) drug therapy
CPT/HCPCS: 36415; 71275; 80053; 84484; 85025; 85379; 93005; 96361; 96374; 96375; J1885; J2060; J2270; Q9967

== ENCOUNTER 2019-09-23 20:53 | Emergency (ER) | payer BC ==
--- NOTE | 2019-09-23 21:22 | RAD ---
Chest one view HISTORY: Chest pain. COMPARISON: 07/17/2019. FINDINGS: Cardiac silhouette and pulmonary vasculature are unremarkable. Mediastinum is midline. No c onfluent airspace consolidation or evidence of pneumothorax. IMPRESSION: Normal exam.
[2019-09-23 21:34] LABS: #Basophils 0.1 thou/uL (0.0-0.2); #Eosinphils 0.2 thou/uL (0.0-0.7); #Lymphocytes 1.9 thou/uL (1.20-3.40); #Monocytes 0.4 thou/uL (0.11-0.59); #Neutrophils 4.1 thou/uL (1.40-6.50); %Eosinophils 2.9 % (0.0-10.0); %Lymphocytes 28.2 % (21.0-51.0); %Monocytes 5.9 % (0.0-10.0); %Neutrophils 62.1 % (42.0-75.0); Hemoglobin 12.4 g/dL (12.0-16.0); Mean Corpuscular HGB CONC 33.4 g/dL (32.0-36.0); Mean Corpuscular Hemoglobin 27.9 pg (27.0-31.0); Mean Corpuscular Volume 83.8 fL (78.0-98.0); Mean Platelet Volume 8.1 fL (7.4-10.4); Platelet Count 224 thou/uL (130-400); RBC Distribution Width 15.3 % (11.5-14.5); Red Blood Cell (RBC) Count 4.45 mill/uL (4.20-5.40); White Blood Cell (WBC) Count 6.7 thou/uL (4.8-10.8)
[2019-09-23 21:51] LABS: BHCG - Serum Negative (NEGATIVE); Pregs Control Background? CLEAR/WHITE (CLR/WHITE); Pregs Control Bar Appear? YES (CONTROL BAR)
[2019-09-23 22:06] LABS: ALT (SGPT) 8 U/L (8-55); AST (SGOT) 14 U/L (5-34); Albumin 4.7 g/dL (3.5-5.0); Alkaline Phosphatase 91 U/L (40-110); Anion Gap 14 mmol/L (10-20); BUN (Urea Nitrogen) 13 mg/dL (7.0-18.7); Bilirubin, Total 0.4 mg/dL (0.2-1.2); CK (CPK) 40 U/L (29-168); Calc. Creatinine Clearance 0 mL/min (70-130); Calcium 9.5 mg/dL (7.8-10.44); Carbon Dioxide 24 mmol/L (22-29); Chloride 104 mmol/L (98-107); Estimated GFR-MDRD 80; Globulin 2.7 g/dL (2.4-3.5); Glucose 87 mg/dL (70-105); Lipase 37 U/L (8-78); Potassium 3.7 mmol/L (3.5-5.1); Protein, Total 7.4 g/dL (6.0-8.3); Sodium 138 mmol/L (136-145)
[2019-09-23] MEDS ORDERED: Mag-Al 1200 mg/1200 mg/30 ML UDCUP ONE (22:34)
[2019-09-23] MEDS ORDERED: Lidocaine Viscous Sol 2% 15 ml UD Cup ONE (22:34)
[2019-09-23 22:35] LABS: Bilirubin Negative (Negative); Blood, Urine Negative (Negative); Clarity Clear (Clear); Glucose, Urine (Dipstick) Normal (Negative); Leukocyte Negative Leu/uL (Negative); Nitrite Negative (Negative); Protein, Urine (Dipstick) Negative (Neg-Trace); Urobilinogen Normal mg/dL (Less than 2)
[2019-09-23 23:16] LABS: Troponin I Less than 0.010 ng/mL (< 0.028)
== END 2019-09-24 00:12 | disposition home or self-care (01) ==
LOC: ERS 20:53
DX: R07.89 Other chest pain (principal); K21.9 Gastro-esophageal reflux disease without esophagitis; D64.9 Anemia, unspecified; F41.9 Anxiety disorder, unspecified; Z79.899 Other long term (current) drug therapy
CPT/HCPCS: 36415; 71045; 80053; 81003; 82550; 83690; 84484; 84703; 85025; 93005; 94760

== ENCOUNTER 2021-10-05 08:57 | Outpatient (CLI) | payer BC | END 2021-10-05 08:58 | disposition home or self-care (01) | LOC: BICRAD 08:57 | PROVIDERS: ATTEND Family Medicine | DX: R06.02 Shortness of breath (principal) | CPT/HCPCS: 71046 ==

== ENCOUNTER 2021-12-16 08:26 | Outpatient (CLI) | payer BC | END 2021-12-16 08:27 | disposition home or self-care (01) | LOC: ULT 08:26 | PROVIDERS: ATTEND Family Medicine | DX: R10.84 Generalized abdominal pain (principal); Z90.49 Acquired absence of other specified parts of digestive tract | CPT/HCPCS: 76700 ==

== ENCOUNTER 2022-11-23 17:41 | Emergency (ER) | payer BC ==
[2022-11-23 18:32] LABS: #Lymphocytes 1.3 thou/uL (1.20-3.40); #Monocytes 0.2 thou/uL (0.11-0.59); #Neutrophils 2.7 thou/uL (1.40-6.50); %Basophils 0.7 % (0.0-1.0); %Eosinophils 0.8 % (0.0-10.0); %Lymphocytes 30.8 % (21.0-51.0); %Monocytes 5.4 % (0.0-10.0); %Neutrophils 62.3 % (42.0-75.0); Hemoglobin 13.4 g/dL (12.0-16.0); Mean Corpuscular HGB CONC 33.8 g/dL (32.0-36.0); Mean Corpuscular Hemoglobin 31.4 pg (27.0-31.0); Mean Corpuscular Volume 92.8 fl (78.0-98.0); Mean Platelet Volume 7.3 fL (7.4-10.4); Platelet Count 228 10x3/uL (130-400); RBC Distribution Width 11.1 % (11.5-14.5); Red Blood Cell (RBC) Count 4.29 mill/uL (4.20-5.40); White Blood Cell (WBC) Count 4.3 10x3/uL (4.8-10.8)
[2022-11-23 18:55] LABS: ALT (SGPT) 9 U/L (8-55); AST (SGOT) 15 U/L (5-34); Albumin 4.6 g/dL (3.5-5.0); Alkaline Phosphatase 77 U/L (40-110); Anion Gap 13 mmol/L (10-20); BUN (Urea Nitrogen) 8 mg/dL (7.0-18.7); Bilirubin, Total 0.5 mg/dL (0.2-1.2); Calc. Creatinine Clearance 0 mL/min (70-130); Calcium 9.3 mg/dL (7.8-10.44); Carbon Dioxide 24 mmol/L (22-29); Chloride 105 mmol/L (98-107); Estimated GFR 98; Globulin 2.6 g/dL (2.4-3.5); Glucose 93 mg/dL (70-105); Protein, Total 7.2 g/dL (6.0-8.3); Sodium 138 mmol/L (136-145)
[2022-11-23 22:02] LABS: Troponin I Less than 0.010 ng/mL (< 0.028)
== END 2022-11-23 22:49 | disposition home or self-care (01) ==
LOC: ERS 17:41
DX: R10.13 Epigastric pain (principal); K21.9 Gastro-esophageal reflux disease without esophagitis; Z79.899 Other long term (current) drug therapy
CPT/HCPCS: 36415; 80053; 84484; 85025; 85730; 93005